=== PATIENT | female | born 1960 | race American Indian/Alaskan Native ===

== ENCOUNTER 2017-02-10 06:26 | Day surgery (SDC) | payer MEDICAID ==
[2017-02-10 06:54] VITALS: BMI 28.1
[2017-02-10 07:06] VITALS: TEMP 97.5
[2017-02-10] MEDS ORDERED: Propofol 10 mg/ml Inj (20 ML) ONE (07:56)
[2017-02-10 08:31] VITALS: O2SAT 100
[2017-02-10 09:02] VITALS: RESP 18
[2017-02-10 09:32] VITALS: BP 114/59; PULSE 53
== END 2017-02-10 09:25 | disposition home or self-care (01) ==
LOC: C.ENDO 06:26
PROVIDERS: ATTEND Internal Medicine Gastroenterology
DX: Z12.11 Encounter for screening for malignant neoplasm of colon (principal); K57.30 Diverticulosis of large intestine without perforation or abscess without bleeding; K64.8 Other hemorrhoids
CPT/HCPCS: 45378; J2704